=== PATIENT | female | born 1970 | race Caucasian/White ===

== ENCOUNTER 2017-05-30 23:32 | Emergency (ER) | payer OTHER ==
[2017-05-31 00:31] LABS: BASOPHIL % 0.5 % (0-2); PLATELET COUNT 256 x10^3mcL (130-400); RED CELL DISTRIBUTION WIDTH 12.7 % (11.5-14.5)
[2017-05-31 00:45] LABS: CARBON DIOXIDE 28.3 mmol/L (21-32); CHLORIDE SERUM 101 mmol/L (98-107); CREATININE SERUM 0.7 mg/dL (0.6-1.0); GFR1 > 60 mL/min; GLUCOSE SERUM 314 mg/dL (74-106); SODIUM SERUM 137 mmol/L (136-145)
[2017-05-31 00:50] LABS: ALBUMIN 3.8 g/dL (3.4-5.0); ALKALINE PHOSPHATASE 56 U/L (46-116); ALT/SGPT 35 U/L (14-59); AST/SGOT 13 U/L (15-37); BILIRUBIN TOTAL 0.4 mg/dL (0.20-1.00); TOTAL PROTEIN, SERUM 7.4 g/dL (6.4-8.2)
[2017-05-31 02:24] VITALS: BP 116/76
== END 2017-05-31 02:24 | disposition home or self-care (01) ==
LOC: ED 23:32
PROVIDERS: Emergency Medicine
DX: R07.9 Chest pain, unspecified (principal); R20.2 Paresthesia of skin; E11.65 Type 2 diabetes mellitus with hyperglycemia; R42 Dizziness and giddiness
CPT/HCPCS: 36415

== ENCOUNTER 2017-09-13 20:30 | Inpatient (IN) | payer OTHER ==
[~2017-09-13] VITALS: Ht 162.6 cm; Wt 78.6 kg
[2017-09-13 21:00] VITALS: Ht 162.6 cm; Wt 78.6 kg
[2017-09-13 22:39] LABS: BASOPHIL % 0.3 % (0-2); PLATELET COUNT 260 x10^3mcL (130-400); RED CELL DISTRIBUTION WIDTH 13.4 % (11.5-14.5)
[2017-09-13 22:59] LABS: microscopic required? YES; urine erythrocyte 3+ (NEGATIVE)
[2017-09-13 23:01] LABS: CALCIUM 8.9 mg/dL (8.5-10.1); CARBON DIOXIDE 25.2 mmol/L (21-32); CHLORIDE SERUM 103 mmol/L (98-107); CREATININE SERUM 0.6 mg/dL (0.6-1.0); GFR1 > 60 mL/min; GLUCOSE SERUM 226 mg/dL (74-106); POTASSIUM SERUM 3.9 mmol/L (3.5-5.1); SODIUM SERUM 142 mmol/L (136-145)
[2017-09-13 23:05] LABS: ALBUMIN 3.7 g/dL (3.4-5.0); ALKALINE PHOSPHATASE 47 U/L (46-116); ALT/SGPT 46 U/L (14-59); AST/SGOT 18 U/L (15-37); BILIRUBIN TOTAL 0.23 mg/dL (0.20-1.00); LIPASE 174 IU/L (73-393); MAGNESIUM 1.7 mg/dL (1.8-2.4)
[2017-09-13] MEDS ORDERED: TECFIDERA240 MG PO (23:25)
[2017-09-13] MEDS ORDERED: NEU300 PO (23:26)
[2017-09-13] MEDS ORDERED: METFORMIN500 M1 PO (23:27)
[2017-09-13] MEDS ORDERED: LANTUS SOLOS100 U/M1 SC (23:27)
[2017-09-13 23:53] LABS: PHOSPHOROUS 3.7 mg/dL (2.5-4.9)
[2017-09-13 23:57] LABS: CHOLESTEROL/HDL RATIO 4.5
[2017-09-14] VITALS (7 sets, daily range): BP systolic 115–140; BP diastolic 56–86
[2017-09-14] LABS: FREE T4 0.93 ng/dL (0.76-1.46); FREE THYROXINE INDEX 2.2 ug/dL (1.4-4.5); T4(THYROXINE) 6.4 ug/dL (4.7-13.3)
[2017-09-14 06:53] LABS: CALCIUM 8.3 mg/dL (8.5-10.1); CARBON DIOXIDE 22.4 mmol/L (21-32); CHLORIDE SERUM 101 mmol/L (98-107); CREATININE SERUM 0.6 mg/dL (0.6-1.0); GFR1 > 60 mL/min; GLUCOSE SERUM 337 mg/dL (74-106); MAGNESIUM 2.2 mg/dL (1.8-2.4); POTASSIUM SERUM 4.1 mmol/L (3.5-5.1); SODIUM SERUM 136 mmol/L (136-145)
[2017-09-14 08:20] LABS: BASOPHIL % 0.1 % (0-2); PLATELET COUNT 244 x10^3mcL (130-400); RED CELL DISTRIBUTION WIDTH 13.2 % (11.5-14.5)
[2017-09-14 17:56] LABS: AMPHETAMINE QUAL UR NONE DETECTED (NEG <=1000)
[2017-09-15 05:57] VITALS: BP 130/81
[2017-09-15 07:35] LABS: BASOPHIL % 0 % (0-2); PLATELET COUNT 247 x10^3mcL (130-400); RED CELL DISTRIBUTION WIDTH 13.3 % (11.5-14.5)
[2017-09-15 07:42] LABS: CALCIUM 8.4 mg/dL (8.5-10.1); CARBON DIOXIDE 23.3 mmol/L (21-32); CHLORIDE SERUM 106 mmol/L (98-107); CREATININE SERUM 0.5 mg/dL (0.6-1.0); GFR1 > 60 mL/min; GLUCOSE SERUM 253 mg/dL (74-106); MAGNESIUM 2.1 mg/dL (1.8-2.4); PHOSPHOROUS 3.5 mg/dL (2.5-4.9); POTASSIUM SERUM 4.1 mmol/L (3.5-5.1); SODIUM SERUM 140 mmol/L (136-145)
[2017-09-15 09:17] LABS: T3 TOTAL 0.92 ng/mL
[2017-09-15 09:42] VITALS: BP 131/69
[2017-09-15] MEDS ORDERED: NEU300 PO (09:59)
[2017-09-15] MEDS ORDERED: CYMBALTA30 M1 PO (10:03)
[2017-09-15] MEDS ORDERED: MEDDP PO (10:05)
[2017-09-15 13:36] VITALS: BP 130/70
[2017-09-15 14:11] VITALS: BP 130/70
== END 2017-09-15 15:50 | disposition home or self-care (01) | DRG 58 ==
LOC: ED 20:30 → DU 23:08 → MU 23:08 → DU 23:08 → MU 09-14 21:00
PROVIDERS: Emergency Medicine; Family Medicine Sports Medicine
DX: G35 Multiple sclerosis (principal); N17.0 Acute kidney failure with tubular necrosis; R19.7 Diarrhea, unspecified; G90.8 Other disorders of autonomic nervous system; E11.65 Type 2 diabetes mellitus with hyperglycemia; E83.42 Hypomagnesemia; R31.9 Hematuria, unspecified; D64.9 Anemia, unspecified; D72.829 Elevated white blood cell count, unspecified; T38.0X5A Adverse effect of glucocorticoids and synthetic analogues, initial encounter; Y92.89 Other specified places as the place of occurrence of the external cause
CPT/HCPCS: 82962; 83880; 84439; 97110-GP; J1815; J2920; J2930; J3475; J7030; J8597; Q0092

== ENCOUNTER 2018-04-13 15:54 | Inpatient (IN) | payer OTHER ==
[~2018-04-13] VITALS: Ht 160 cm; Wt 76.7 kg
[~2018-04-13 15:54] MED LIST: CYMBALTA30 M1 PO; LANTUS SOLOS100 U/M1 SC; MEDDP PO; METFORMIN500 M1 PO; NEU300 PO; TECFIDERA240 MG PO
[2018-04-13 15:56] VITALS: Ht 160 cm; Wt 76.7 kg
[2018-04-13 16:49] LABS: BASOPHIL % 0.5 % (0-2); PLATELET COUNT 239 x10^3mcL (130-400); RED CELL DISTRIBUTION WIDTH 12.8 % (11.5-14.5)
[2018-04-13 16:55] LABS: CARBON DIOXIDE 24.7 mmol/L (21-32); CHLORIDE SERUM 101 mmol/L (98-107); CREATININE SERUM 0.5 mg/dL (0.6-1.0); GFR1 > 60 mL/min; GLUCOSE SERUM 231 mg/dL (74-106); POTASSIUM SERUM 3.9 mmol/L (3.5-5.1); SODIUM SERUM 134 mmol/L (136-145)
[2018-04-13 16:59] LABS: ALBUMIN 4.1 g/dL (3.4-5.0); ALKALINE PHOSPHATASE 49 U/L (46-116); ALT/SGPT 43 U/L (14-59); AST/SGOT 16 U/L (15-37); BILIRUBIN TOTAL 0.4 mg/dL (0.20-1.00); TOTAL PROTEIN, SERUM 7.6 g/dL (6.4-8.2)
[2018-04-13] MEDS ORDERED: METFORMIN850 M1 PO (17:42)
[2018-04-13 19:53] VITALS: BP 116/74
[2018-04-14 05:56] VITALS: BP 126/70
[2018-04-14 06:33] LABS: ALBUMIN 3.8 g/dL (3.4-5.0); ALKALINE PHOSPHATASE 49 U/L (46-116); ALT/SGPT 45 U/L (14-59); AST/SGOT 20 U/L (15-37); BILIRUBIN TOTAL 0.4 mg/dL (0.20-1.00); CARBON DIOXIDE 21.8 mmol/L (21-32); CHLORIDE SERUM 102 mmol/L (98-107); CREATININE SERUM 0.5 mg/dL (0.6-1.0); GFR1 > 60 mL/min; GLUCOSE SERUM 324 mg/dL (74-106); MAGNESIUM 2.2 mg/dL (1.8-2.4); POTASSIUM SERUM 4.2 mmol/L (3.5-5.1); SODIUM SERUM 135 mmol/L (136-145); TOTAL PROTEIN, SERUM 7.6 g/dL (6.4-8.2)
[2018-04-14 09:13] VITALS: BP 147/86
[2018-04-14 13:44] VITALS: BP 138/57
[2018-04-14 16:39] VITALS: BP 138/57
[2018-04-14] MEDS ORDERED: MEDDP PO (16:40)
== END 2018-04-14 18:16 | disposition home or self-care (01) | DRG 60 ==
LOC: ED 15:54 → DU 18:30
PROVIDERS: Emergency Medicine; Internal Medicine Pulmonary Disease
DX: G35 Multiple sclerosis (principal); E11.65 Type 2 diabetes mellitus with hyperglycemia
CPT/HCPCS: 82962; J1644; J2930; J7030